=== PATIENT | male | born 1945 | race Caucasian/White ===

== ENCOUNTER → 2017-12-17 | Day surgery (SDC) | payer MEDICARE ==
[~2017-12-17] MED LIST: DEXAMETHASONE SOD PHOS 20 MG/5 ML VIAL.; LABETALOL 20 MG/4 ML DISP.SYRIN.; LIDOCAINE 1% PF 2 ML VIAL. ID; MORPHINE SULFATE 4 MG/ML DISP.SYRIN. IV; ONDANSETRON PF 4 MG/2 ML VIAL.; ONDANSETRON PF 4 MG/2 ML VIAL. IV; OPIUM/BELLADONNA 30/16.2MG SUPP.RECT.; OPIUM/BELLADONNA 30/16.2MG SUPP.RECT. PR; PROCHLORPERAZINE 10 MG/2 ML VIAL. IV; PROPOFOL 20 ML IV; ceFAZolin 2GM PREMIX 2 GM/50 ML BAG IV; fentaNYL PF VIAL 100 MCG/2 ML VIAL; fentaNYL PF VIAL 100 MCG/2 ML VIAL IV; hydrALAZINE 20 MG/ML VIAL.
[2017-12-17] MEDS: IV RINGERS,LACTATED 1000ML 1,000 ML IV (07:00)
[2017-12-17] MEDS: METOPROLOL TARTRATE 5 MG/5 ML VIAL. IVP (13:40)
[2017-12-17] MEDS: LIDOCAINE 2% JELLY 6ML IN APPLICATOR. (16:49)
[2017-12-17] MEDS: hydrALAZINE 20 MG/ML VIAL. IVP (17:23)
== END | disposition home or self-care (01) ==
LOC: SURG 11:59
DX: N40.1 Benign prostatic hyperplasia with lower urinary tract symptoms (principal); R33.8 Other retention of urine; N36.2 Urethral caruncle; Z98.890 Other specified postprocedural states; Z79.01 Long term (current) use of anticoagulants; I48.91 Unspecified atrial fibrillation; I10 Essential (primary) hypertension; Z86.010 Personal history of colon polyps; Z72.89 Other problems related to lifestyle; F17.200 Nicotine dependence, unspecified, uncomplicated
CPT/HCPCS: 52224; 88305; J0360; J0690; J1100; J2405; J2704; J3010; J3490